=== PATIENT | female | born 1990 | race Caucasian/White ===

== ENCOUNTER 2016-09-30 11:27 | Emergency (ER) | payer OTHER ==
[~2016-09-30] VITALS: Ht 160 cm; Wt 56.0 kg
[~2016-09-30 11:27] MED LIST: DOXY100T PO; NAPR500 PO
[2016-09-30 11:29] VITALS: BP 120/70; PULSE 84; RESP 16; TEMP 98.1; O2SAT 99
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
[2016-09-30 12:09] LABS: AUTOMATED NEUTROPHIL # 3.5 TH/MM3 (1.8-7.7); BASOPHIL % 0.4 % (0.0-2.0); EOSINOPHIL # 0.1 TH/MM3 (0-0.4); EOSINOPHIL % 0.9 % (0.0-4.0); HEMATOCRIT 39.2 % (35.0-46.0); HEMO FLAGS DIFF FINAL; LYMPH % 29.6 % (9.0-44.0); LYMPHOCYTE # 1.7 TH/MM3 (1.0-4.8); MEAN CELL VOLUME 89.1 FL (80.0-100.0); MEAN CORPUSCULAR HEMOGLOBIN 30.7 PG (27.0-34.0); MEAN CORPUSCULAR HGB CONC 34.5 % (32.0-36.0); MONO % 9.2 % (0.0-8.0); NEUT % 59.9 % (16.0-70.0); PLATELET COUNT 259 TH/MM3 (150-450); RED CELL DISTRIBUTION WIDTH 13.7 % (11.6-17.2); WHITE BLOOD COUNT 5.8 TH/MM3 (4.0-11.0)
[2016-09-30 12:26] LABS: BICARBONATE 25.8 MEQ/L (21.0-32.0); POTASSIUM 3.8 MEQ/L (3.5-5.1)
[2016-09-30 12:26] LABS: BACTERIA, URINE FEW /hpf; BLOOD, URINE NEG (NEG); COMMENT (UR) CULT NOT INDICATED; CULTURE IF INDICATED CULT NOT INDICATED; GLUCOSE,URINE NEG (NEG); KETONE, URINE NEG (NEG); MUCUS URINE MANY /lpf (OCC); NITRITE,URINE NEG (NEG); SQUAMOUS EPITHELIAL CELL URINE 4 /hpf (0-5); URINE COLOR YELLOW (YELLW/STRAW)
[2016-09-30] MEDS ORDERED: ACETAMINOPHEN 325 MG TAB PO ONE (13:15)
[2016-09-30] MEDS ORDERED: ACET500T36 PO (13:51)
[2016-09-30 15:46] LABS: CHLAMYDIA PCR NOT DETECTED (NOT DETECT); NEISSERIA PCR NOT DETECTED (NOT DETECT)
== END 2016-09-30 14:12 | disposition home or self-care (01) ==
LOC: NEPA 11:27
DX: O26.899 Other specified pregnancy related conditions, unspecified trimester (principal); F41.8 Other specified anxiety disorders; B19.20 Unspecified viral hepatitis C without hepatic coma; Z3A.00 Weeks of gestation of pregnancy not specified
CPT/HCPCS: 80048; 81001; 84702; 84703; 85025; 86850; 86900; 86901; 87210; 87491; 87591; 99284

== ENCOUNTER 2016-10-05 21:44 | Emergency (ER) | payer SELFPAY ==
[~2016-10-05] VITALS: Ht 160 cm; Wt 56.0 kg
[~2016-10-05 21:44] MED LIST changes: +ACET500T36 PO; -DOXY100T PO; -NAPR500 PO
[2016-10-05 21:45] VITALS: BP 117/73; PULSE 85; RESP 14; TEMP 98.2; O2SAT 100
== END 2016-10-06 00:17 | disposition left against medical advice (07) ==
LOC: NED 21:44
DX: R68.89 Other general symptoms and signs (principal)
CPT/HCPCS: 99281

== ENCOUNTER 2016-10-06 12:50 | Emergency (ER) | payer SELFPAY ==
[~2016-10-06] VITALS: Ht 160 cm; Wt 55.0 kg
[2016-10-06 12:51] VITALS: BP 123/68; PULSE 90; RESP 15; TEMP 98; O2SAT 99
== END 2016-10-06 15:03 | disposition left against medical advice (07) ==
LOC: NED 12:50
DX: O26.899 Other specified pregnancy related conditions, unspecified trimester (principal)
CPT/HCPCS: 99281

== ENCOUNTER 2017-01-18 09:10 | Emergency (ER) | payer MEDICAID ==
[~2017-01-18] VITALS: Ht 160 cm; Wt 56.0 kg
[2017-01-18 09:11] VITALS: BP 126/86; PULSE 86; RESP 15; TEMP 98.3; O2SAT 99
[2017-01-18] MEDS ORDERED: LAMO100 PO (09:28)
[2017-01-18 10:00] LABS: AUTOMATED NEUTROPHIL # 3.5 TH/MM3 (1.8-7.7); BASOPHIL % 0.8 % (0.0-2.0); EOSINOPHIL # 0.1 TH/MM3 (0-0.4); EOSINOPHIL % 1.4 % (0.0-4.0); HEMATOCRIT 35.8 % (35.0-46.0); HEMO FLAGS DIFF FINAL; LYMPH % 24.2 % (9.0-44.0); LYMPHOCYTE # 1.3 TH/MM3 (1.0-4.8); MEAN CELL VOLUME 90.6 FL (80.0-100.0); MEAN CORPUSCULAR HEMOGLOBIN 29.4 PG (27.0-34.0); MEAN CORPUSCULAR HGB CONC 32.5 % (32.0-36.0); MONO % 8.9 % (0.0-8.0); NEUT % 64.7 % (16.0-70.0); PLATELET COUNT 255 TH/MM3 (150-450); RED BLOOD COUNT 3.95 MIL/MM3 (4.00-5.30); RED CELL DISTRIBUTION WIDTH 13.6 % (11.6-17.2); WHITE BLOOD COUNT 5.4 TH/MM3 (4.0-11.0)
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
[2017-01-18 10:20] LABS: BETA HCG QUANT 197 MIU/ML (0-5)
== END 2017-01-18 10:55 | disposition home or self-care (01) ==
LOC: NEPD 09:10
DX: N93.9 Abnormal uterine and vaginal bleeding, unspecified (principal); F17.210 Nicotine dependence, cigarettes, uncomplicated
CPT/HCPCS: 84702; 85025; 99283

== ENCOUNTER 2017-01-26 15:50 | Emergency (ER) | payer MEDICAID ==
[~2017-01-26] VITALS: Ht 160 cm; Wt 55.0 kg
[~2017-01-26 15:50] MED LIST changes: -ACET500T36 PO; +LAMO100 PO
[2017-01-26 15:52] VITALS: BP 123/62; PULSE 94; RESP 20; TEMP 98.7; O2SAT 99
--- NOTE | 2017-01-26 16:03 | PD ---
Physical Exam Date Seen by Provider: Jan 26, 2017 Time Seen by Provider: 16:01 Data Data Last Documented VS Vital Signs Date Time Temp Pulse Resp B/P Pulse Ox O2 Delivery O2 Flow Rate FiO2 01/26/17 15:52 98.7 94 20 123/62 99 Room Air MDM Supervised Visit with PAVEL: No Narrative Course 26 YO F with complaint of positive test. States lower abdominal cramping and vaginal bleeding. LMP 11/11. Patient seen with similar complaint 01/18. Vitals reviewed. Awaiting bed placement. Christel Denis Jan 26, 2017 16:03
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
[2017-01-26 17:57] LABS: BLOOD, URINE TRACE (NEG); COMMENT (UR) CULT NOT INDICATED; CULTURE IF INDICATED CULT NOT INDICATED; GLUCOSE,URINE NEG (NEG); KETONE, URINE NEG (NEG); MUCUS URINE FEW /lpf (OCC); NITRITE,URINE NEG (NEG); PH, URINE 6.5 (5.0-8.5); SQUAMOUS EPITHELIAL CELL URINE <1 /hpf (0-5); URINE COLOR YELLOW (YELLW/STRAW)
[2017-01-26 18:09] LABS: AUTOMATED NEUTROPHIL # 6.3 TH/MM3 (1.8-7.7); BASOPHIL # 0.1 TH/MM3 (0-0.2); BASOPHIL % 0.7 % (0.0-2.0); EOSINOPHIL # 0.1 TH/MM3 (0-0.4); HEMATOCRIT 38.3 % (35.0-46.0); HEMO FLAGS DIFF FINAL; LYMPH % 21.2 % (9.0-44.0); LYMPHOCYTE # 1.9 TH/MM3 (1.0-4.8); MEAN CELL VOLUME 91.4 FL (80.0-100.0); MEAN CORPUSCULAR HGB CONC 32.9 % (32.0-36.0); MONO % 7.8 % (0.0-8.0); NEUT % 69.3 % (16.0-70.0); PLATELET COUNT 270 TH/MM3 (150-450); RED BLOOD COUNT 4.19 MIL/MM3 (4.00-5.30); RED CELL DISTRIBUTION WIDTH 13.8 % (11.6-17.2)
[2017-01-26 18:20] LABS: BICARBONATE 25.2 MEQ/L (21.0-32.0); POTASSIUM 3.8 MEQ/L (3.5-5.1)
== END 2017-01-26 18:54 | disposition home or self-care (01) ==
LOC: NEPD 15:50
DX: O03.4 Incomplete spontaneous abortion without complication (principal)
CPT/HCPCS: 80048; 81001; 84702; 85025; 99283

== ENCOUNTER 2017-01-29 18:32 | Observation (INO) | payer MEDICAID ==
[~2017-01-29] VITALS: Ht 160 cm; Wt 56.0 kg
[2017-01-29 18:34] VITALS: BP 112/68; PULSE 95; RESP 20; TEMP 98.5; O2SAT 98
--- NOTE | 2017-01-29 19:36 | PD ---
Physical Exam Date Seen by Provider: Jan 29, 2017 Time Seen by Provider: 19:34 Narrative 26 yo female here for evaluation of possible ectopic. Has a recent ultrasound that showed mass on left ovary. Having bleeding and about 3-[address] Swenson told her to come here for evaluation. Pain to the lower abdomen which is cramping and 5/10. Vitals sign stable. Patient awaiting bed placement. Data Data Last Documented VS Vital Signs Date Time Temp Pulse Resp B/P Pulse Ox O2 Delivery O2 Flow Rate FiO2 01/29/17 18:34 98.5 95 20 112/68 98 Room Air [facility] Medical Record Reviewed: Yes Supervised Visit with PAVEL: Vijay Sanchez Jan 29, 2017 19:36
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
[2017-01-29 22:16] LABS: AUTOMATED NEUTROPHIL # 5.8 TH/MM3 (1.8-7.7); BASOPHIL % 0.3 % (0.0-2.0); EOSINOPHIL # 0.1 TH/MM3 (0-0.4); HEMO FLAGS DIFF FINAL; LYMPH % 25.9 % (9.0-44.0); LYMPHOCYTE # 2.3 TH/MM3 (1.0-4.8); MEAN CELL VOLUME 89.4 FL (80.0-100.0); MEAN CORPUSCULAR HEMOGLOBIN 29.3 PG (27.0-34.0); MEAN CORPUSCULAR HGB CONC 32.8 % (32.0-36.0); MONO % 7.2 % (0.0-8.0); NEUT % 65.6 % (16.0-70.0); PLATELET COUNT 289 TH/MM3 (150-450); RED BLOOD COUNT 4.14 MIL/MM3 (4.00-5.30); RED CELL DISTRIBUTION WIDTH 13.8 % (11.6-17.2); WHITE BLOOD COUNT 8.9 TH/MM3 (4.0-11.0)
[2017-01-29 22:19] LABS: BACTERIA, URINE RARE /hpf; BLOOD, URINE NEG (NEG); COMMENT (UR) CULT NOT INDICATED; CULTURE IF INDICATED CULT NOT INDICATED; GLUCOSE,URINE NEG (NEG); KETONE, URINE NEG (NEG); MUCUS URINE FEW /lpf (OCC); NITRITE,URINE NEG (NEG); SQUAMOUS EPITHELIAL CELL URINE 1 /hpf (0-5); URINE COLOR YELLOW (YELLW/STRAW)
[2017-01-29 22:38] LABS: ANION GAP 9 MEQ/L (5-15); AST (GOT) 21 U/L (15-37); BICARBONATE 25.8 MEQ/L (21.0-32.0); BLOOD UREA NITROGEN 8 MG/DL (7-18); CHLORIDE 105 MEQ/L (98-107); GLOMERULAR FILTRATION RATE 63 ML/MIN (>89); POTASSIUM 3.4 MEQ/L (3.5-5.1); SODIUM (NA) 140 MEQ/L (136-145)
[2017-01-29 22:39] LABS: ALT (GPT) 25 U/L (10-53)
[2017-01-29 22:43] LABS: ALKALINE PHOSPHATASE 54 U/L (45-117); BETA HCG QUANT 388 MIU/ML (0-5); TOTAL BILIRUBIN ADULT 0.4 MG/DL (0.2-1.0)
--- NOTE | 2017-01-29 23:28 | HHI.HP ---
HPI Chief Complaint Abnormal vaginal bleeding and pelvic pain for 4 weeks Date Seen: Jan 29, 2017 Travel History International Travel<30 Days: No Contact w/Intl Traveler<30Days: No Known Affected Area: No History of Present Illness HPI This patient is 26-year-old white female A [address] Boss who presents with a 4 week history of abnormal uterine bleeding and pelvic pain. She's had the slowly rising low-level quantitative hCGs that were initially 197 and then 316 and then tonight 388 she states the bleeding is at times somewhat heavy but most the time is very light and pain is intermittent. She's been the hospital 3 times with this problem in the last 4 weeks. [facility] which showed an empty uterus and a mass in the left side that was suspicious for ectopic , he then sent the patient to the emergency room patient is a history of ectopic in the past that was treated by laparoscopy by Dr. Boss who she describes as removing a small portion of the left tube and sewing it back together. Para: 1 : 6 Miscarriage: 1 : 2 History Past Medical History Narrative Medical History of bipolar disorder with multiple admissions and is on Lamictal for this now Had a history of being treated for PID in the past Medical History: Denies Significant Hx Obstetric History Obstetric History 1 , 1 ectopic on the left side, one spontaneous in September of this year, 2 elective AB is the past Past Surgical History Narrative Surgical , D&C, laparoscopy for ectopic Social History Narrative Social History Patient now no longer IV drug abuser but that was ongoing for 3 or 4 years in the past Alcohol Use: Yes Tobacco Use: Yes Substance Abuse: Yes Allergies-Medications (Allergen,Severity, Reaction): Coded Allergies: No Known Allergies (Verified , 01/29/17) Home Meds Reported Medications Lamotrigine (Lamictal)100 Mg [id number] Mg PO DAILY #30 TAB Ref 0 01/18/17 Review of Systems General / Constitutional: No: Fever, Weight Gain, Chills, Other Eyes: No: Diploplia, Blurred Vision, Visual changes, Pain, Photophobia HENT: No: Headaches, Vertigo, Lightheadedness Cardiovascular: No: Irregular Rhythm, Chest Pain or Discomfort, Palpitations, Tachycardia, Syncope, Varicosities, Edema, Cyanosis Respiratory: No: Cough, Short of Breath, Other Gastrointestinal: Abdominal Pain, No: Nausea, Vomiting, Diarrhea Genitourinary: Vaginal Bleeding, No: Decreased Urinary Output, Oliguria Musculoskeletal: No: Limited ROM, Weakness, Cramping, Edema, Pain Skin: No Rash, No Itching, No Dryness, No Lumps, No Change in Pigmentation, No Change in Nails, No Alopecia, No Lesions Neurologic: No: Weakness, Dizziness, Syncope, Focal Abnormalities, Coordination Problem, Headache, Slurred Speech, Seizures Psychiatric: No: Depression, Suicidal Ideations, Homicidal Ideation Endocrine: No: Heat Intolerance, Cold Intolerance, Polydipsia, Polyuria, Other Physical Exam Vital Signs Date Time Temp Pulse Resp B/P Pulse Ox O2 Delivery O2 Flow Rate FiO2 01/29/17 21:15 16 01/29/17 18:34 98.5 95 20 112/68 98 Room Air Narrative GENERAL: Well-nourished, well-developed patient. SKIN: Warm and dry. HEAD: Normocephalic and atraumatic. EYES: No scleral icterus. No injection or drainage. ENT: No nasal drainage noted. Mucous membranes pink. Airway patent. NECK: Supple, trachea midline. No JVD. CARDIOVASCULAR: Regular rate and rhythm without murmurs, gallops, or rubs. RESPIRATORY: Breath sounds equal bilaterally. No accessory muscle use. BREASTS: Bilateral exam showed no masses , no retractions, no nipple discharge. ABDOMEN/GI: Abdomen soft, 1-2+-tender in the suprapubic pubic region and to the right side, bowel sounds present, no rebound, no guarding , no mass GENITOURINARY: External Genitalia: intact and normal in appearance BUS glands: [-] Cervix: [-Positive cervical motion tenderness 1-2+] No blood in the vagina Uterus is anteflexed 2+ tender there is fullness on the right side with 2+ tenderness minimal to no abnormalities on the left side EXTREMITIES: No cyanosis or edema. BACK: Nontender without obvious deformity. No CVA tenderness. NEUROLOGICAL: Awake and alert. Motor and sensory grossly within normal limits. Five out of 5 muscle strength in all muscle groups. Normal speech. Data Data Orders Beta Hcg (Quant/Titer) (01/29/17 21:45) Complete Blood Count With Diff (01/29/17 21:45) Comprehensive Metabolic Panel (01/29/17 21:45) Urinalysis - C+S If Indicated (01/29/17 21:45) Iv Access Insert/Monitor (01/29/17 21:45) Ecg Monitoring (01/29/17 21:45) Type And Screen (01/29/17 22:09) Admit Order (Ed Use Only) (01/29/17 22:59) Labs Laboratory Tests Test 01/29/17 01/29/17 21:45 22:10 White Blood Count 8.9 Red Blood Count 4.14 Hemoglobin 12.1 Hematocrit 37.0 Mean Corpuscular Volume 89.4 Mean Corpuscular Hemoglobin 29.3 Mean Corpuscular Hemoglobin 32.8 Concent Red Cell Distribution Width 13.8 Platelet Count 289 Mean Platelet Volume 8.4 Neutrophils (%) (Auto) 65.6 Lymphocytes (%) (Auto) 25.9 Monocytes (%) (Auto) 7.2 Eosinophils (%) (Auto) 1.0 Basophils (%) (Auto) 0.3 Neutrophils # (Auto) 5.8 Lymphocytes # (Auto) 2.3 Monocytes # (Auto) 0.6 Eosinophils # (Auto) 0.1 Basophils # (Auto) 0.0 CBC Comment DIFF FINAL Differential Comment Urine Color YELLOW Urine Turbidity CLEAR Urine pH 6.0 Urine Specific [place] 1.017 Urine Protein NEG Urine Glucose (UA) NEG Urine Ketones NEG Urine Occult Blood NEG Urine Nitrite NEG Urine Bilirubin NEG Urine Urobilinogen LESS THAN 2.0 Urine Leukocyte Esterase NEG Urine RBC LESS THAN 1 Urine WBC LESS THAN 1 Urine Squamous Epithelial 1 Cells Urine Bacteria RARE Urine Mucus FEW Microscopic Urinalysis Comment CULT NOT INDICATED Sodium Level 140 Potassium Level 3.4 Chloride Level 105 Carbon Dioxide Level 25.8 Anion Gap 9 Blood Urea Nitrogen 8 Creatinine 1.06 Estimat Glomerular Filtration 63 Rate Random Glucose 82 Calcium Level 8.8 Total Bilirubin 0.4 Aspartate Amino Transf 21 (AST/SGOT) Alanine Aminotransferase 25 (ALT/SGPT) Alkaline Phosphatase 54 Total Protein 8.2 Albumin 4.6 Human Chorionic Gonadotropin, 388 Quant Blood Type O POSITIVE Assessment/Plan Assessment and Plan This patient is a 26-year-old white female a 4 with a history of ectopic treated by laparoscopy on the left side, now with potentially a repeat ectopic. Her quantitative hCGs have been slowly rising but had a low level of 197, 316, 388. Ultrasound done today shows empty uterus with a mass effect on the left side appears to be a fluid-filled tube with a tissue mass was 4 x 2 in that area that may be blood clot may be ectopic this area appears to be separate from the left ovary itself because of the ultrasound shows fluid- filled tube that potentially could be blood I was uncomfortable giving her methotrexate sending her out Impression-possible left-sided ectopic recurrent Plans-- admission the hospital have her nothing by mouth after midnight and consult Dr. Boss, in the morning to see if he would like to reevaluate and potentially taken to the operating room for another scope to definitively diagnosed this problem and treat if he is not interested in that motor therapy then consider a consultation with [facility] oncology Dr. Juan to see if that she would be willing to accept care Jean Velazquez II, MD Jan 29, 2017 23:28
[2017-01-29] MEDS ORDERED: SODIUM CHLORIDE 0.9% FLUSH 10 ML FLUSH IV FLUSH PRN (23:45)
[2017-01-30] VITALS (7 sets, daily range): BP systolic 93–112; BP diastolic 50–78; PULSE 61–74; RESP 18–20; TEMP 96.6–98.4; O2SAT 94–100
[2017-01-30] MEDS: ONDANSETRON HCL 4 MG/2 ML VIAL IV PRN ×2 (03:27→09:31)
[2017-01-30] MEDS: MORPHINE SULFATE 4 MG/ML INJ IV PUSH PRN ×2 (03:28→08:18)
[2017-01-30] MEDS ORDERED: NICOTINE 21 MG/24 HR PATCH T-DERMAL ONE (03:30)
[2017-01-30] MEDS ORDERED: SODIUM CHLORIDE 0.9% FLUSH 10 ML FLUSH IV FLUSH SCH (09:00)
[2017-01-30] MEDS ORDERED: PROPOFOL 200 MG/20 ML AMP IV ONE (09:28)
[2017-01-30] MEDS ORDERED: LACTATED RINGER'S 1000 ML INJ 1,000 ML IV ONE (09:29)
[2017-01-30] MEDS ORDERED: NEOSTIGMINE 3 MG/3 ML SYR IV ONE (09:29)
[2017-01-30] MEDS ORDERED: FAMOTIDINE 20 MG/2 ML VIAL ONE (10:09)
[2017-01-30] MEDS ORDERED: ONDANSETRON HCL 4 MG/2 ML VIAL ONE (10:09)
[2017-01-30] MEDS ORDERED: DEXAMETHASONE SOD PHOS 4 MG/ML VIAL ONE (10:10)
[2017-01-30] MEDS ORDERED: MIDAZOLAM HCL 2 MG/2 ML VIAL ONE (10:28)
[2017-01-30] MEDS ORDERED: fentaNYL CITRATE 250 MCG/5 ML AMP ONE (10:28)
[2017-01-30] MEDS: LACTATED RINGER'S 1000 ML INJ 1,000 ML IV SCH ×2 (12:01→20:56)
[2017-01-30] MEDS ORDERED: DO NOT ADM ANY ANTICOAGULANT DRUGS PRN (12:07)
[2017-01-30] MEDS ORDERED: *morphine SULFATE 8 MG/ML PERIprocedure ONLY ONE ×2 (12:14→13:10)
[2017-01-30] MEDS ORDERED: SODIUM CHLORIDE 0.9% FLUSH 10 ML FLUSH IV FLUSH PRN (12:15)
[2017-01-30] MEDS ORDERED: oxyCODONE/ACETAMINOPHEN 5 MG/325 MG TAB PO PRN (12:15)
[2017-01-30] MEDS ORDERED: IBUPROFEN 600 MG TAB PO PRN (12:15)
[2017-01-30] MEDS ORDERED: *MEPERIDINE 25 MG INJ VIAL PERIprocedural Use ONLY ONE (12:17)
[2017-01-30] MEDS ORDERED: IBUP-232 PO (12:58)
[2017-01-30] MEDS ORDERED: OXYC1TAB63 PO (12:58)
--- NOTE | 2017-01-30 12:58 | HHI.DCPOC ---
Discharge Care Plan Diagnosis: (1) Ectopic Report Symptoms to Your Doctor -Temperature above 100.5 degrees -Redness, of incision or excessive or foul smelling drainage -Unusual pain or calf pain -Increased vaginal bleeding -Painful or difficulty urinating -Feelings of extreme sadness or anxiety after 2 weeks Goals to Promote Your Health * To prevent worsening of your condition and complications * To maintain your health at the optimal level Directions to Meet Your Goals Take your medications as prescribed Follow your dietary instruction Follow activity as directed Ensure plenty of rest for recovery Drink fluids for hydration Keep your appointments as scheduled Take your immunizations and boosters as scheduled If your symptoms worsen call your PCP, if no PCP go to Urgent Care Center or Emergency Room Smoking is Dangerous to Your Health. Avoid second hand smoke Call the 24-hour crisis hotline for domestic abuse at Reinaldo Boss MD Jan 30, 2017 12:58
[2017-01-30] MEDS: oxyCODONE/ACETAMINOPHEN 5 MG/325 MG TAB PO PRN ×2 (14:38→22:00)
[2017-01-30] MEDS: ONDANSETRON HCL 4 MG/2 ML VIAL IVP PRN ×2 (15:20→21:14)
[2017-01-30] MEDS: SODIUM CHLORIDE 0.9% FLUSH 10 ML FLUSH IV FLUSH SCH (20:56)
[2017-01-31 05:33] VITALS: BP 98/48; PULSE 58; RESP 14; TEMP 97.4; O2SAT 98
[2017-01-31] MEDS: LACTATED RINGER'S 1000 ML INJ 1,000 ML IV SCH (05:33)
[2017-01-31 08:00] VITALS: BP 109/57; PULSE 62; RESP 20; TEMP 97.5; O2SAT 99
[2017-01-31] MEDS ORDERED: lamoTRIgine 100 MG TAB PO SCH (09:00)
[2017-01-31] MEDS: SODIUM CHLORIDE 0.9% FLUSH 10 ML FLUSH IV FLUSH SCH (09:00)
--- NOTE | 2017-01-31 10:36 | HHI.PR ---
Subjective Remarks Doing well, pain is well controlled and ready to go home. Ate some breakfast. Objective Vital Signs Date Time Temp Pulse Resp B/P Pulse Ox O2 Delivery O2 Flow Rate FiO2 01/31/17 08:00 97.5 62 20 109/57 99 01/31/17 05:33 97.4 58 14 98/48 98 01/30/17 23:47 96.6 68 20 93/52 99 01/30/17 23:35 16 01/30/17 19:27 97.5 69 20 101/64 94 01/30/17 19:03 72 18 112/60 100 01/30/17 14:33 61 18 102/57 100 01/30/17 13:47 97.7 74 18 94/50 96 01/30/17 13:30 97.4 76 14 96/51 98 Room Air 01/30/17 13:00 65 17 101/55 98 Room Air 01/30/17 12:45 65 24 93/55 100 Nasal Cannula 2 01/30/17 12:30 55 12 94/53 100 Nasal Cannula 2 01/30/17 12:15 74 19 104/55 100 Nasal Cannula 2 01/30/17 12:05 98.8 93 16 107/58 100 Nasal Cannula 2 I/O 01/30/17 01/30/17 01/30/17 01/31/17 01/31/17 01/31/17 07:00 15:00 23:00 07:00 15:00 23:00 Intake Total 1200 ml 240 ml Output Total 50 ml 800 ml Balance 1150 ml 240 ml -800 ml Intake Oral 240 ml Other 1200 ml Output Urine Total 800 ml Estimated Blood Loss 50 ml # Voids 1 1 Result Diagram: 01/29/17214401/29/172144 Other Results chest is clear cv RRR Abd is soft and Nt. Incisions are healing well Ext No CCE Assessment and Plan Assessment and Plan POD #1 S/P Lscopic salpingectomy for ectopic Doing well Home today. Reinaldo Boss MD Jan 31, 2017 10:36
--- NOTE | 2017-02-03 19:19 | MP ---
cc: Reinaldo BOSS MD Corrected: 02/08/2017 DATE OF SURGERY 01/30/17 PREOPERATIVE DIAGNOSIS Ectopic . POSTOPERATIVE DIAGNOSIS 1. Left ampullary ectopic . 2. Pelvic adhesions PROCEDURE 1. D&C laparoscopic exam with a left salpingectomy and lysis of adhesions around the right ovary. ANESTHESIA General SURGEON Reinaldo Boss MD FINDINGS Examination under anesthesia. Vagina was clean. The cervix was clean. There was a little bit of blood in the cervix. The uterus was normal size, shape and consistency and freely mobile. The adnexa was negative for masses. The laparoscopic exam revealed a left ampullary ectopic , partially ruptured, actively bleeding. There was some scar tissue around both ovaries, especially the right. These were all taken down completely. The upper abdomen and GI tract looked normal. COMPLICATIONS None. COUNTS Correct. ESTIMATED BLOOD LOSS 25 mL. FLUIDS Crystalloid DISPOSITION The patient tolerated the procedure well and went to recovery room in good condition. PROCEDURE IN DETAIL The patient was taken to the operating room identified by name band and verbally given a general anesthetic, prepped and draped in usual sterile fashion for laparoscopic vaginal surgery. An in-and-out catheter was performed and a weighted speculum was placed in the vagina. The anterior lip of the cervix was grasped with a single-tooth tenaculum. Cervix was serially dilated without difficulty and a quick D&C was done. There was minimal tissue noted. At this point, attention was turned to the umbilicus. A small subumbilical incision was made and with a 5 mm trocar the abdomen was entered under direct vision without difficulty and a pneumoperitoneum was created with 3 liters of CO2. Inferolateral to the umbilicus on the left I put a 12-mm port, on the right a 5 mm port. We began with stopping the bleeding from the ectopic . Using the harmonic scalpel, we went along the mesosalpinx of the entire tube and removed the entire tube without difficulty. Hemostasis was then excellent. At this point, we put the tube into an EndoCatch bag and removed it in toto without difficulty. At this time, we irrigated the pelvis and abdomen with a large amount of fluid until the fluid was clear. The scar tissue around the right ovary was then taken care of with the Harmonic scalpel using sharp dissection and there was some scar tissue around the left as well. Once this had been accomplished, the pelvis was again irrigated. Hemostasis was adequate at all surgical sites and the 12-mm trocar was removed. With the gas still in the abdomen, the fascia was repaired with 2-0 Vicryl in an interrupted fashion. The air was released from the 5 mm ports and the skin incisions repaired with 4-0 Monocryl in a subcuticular manner. She tolerated procedure well and went to recovery room in good condition. R. MD BROCK Parish/ /2:42 PM /7:00 PM MTDToshia
== END 2017-01-31 11:22 | disposition home or self-care (01) ==
LOC: NEPE 18:32 → UNDOADMOB 23:01 → OBSVTOIN 23:01 → NEDA 23:01 → INTOOBSV 23:01 → NEPHCDU 01-30 04:06 → NEDA 01-30 04:06 → HOCB 01-30 09:56 → NEPHCDU 01-30 09:56 → OBSVTOIN 01-30 12:04 → INTOOBSV 01-30 12:04 → NEPHCDU 01-30 12:04 → NEDA 01-30 12:04 → HOCB 01-30 12:04 → NEPHCDU 01-30 14:09 → HOCB 01-30 14:09 → NEPHCDU 01-30 14:09 → UNDODISOB 01-31 11:22 → UNDODISIN 01-31 11:22
PROVIDERS: ADMIT Obstetrics & Gynecology Maternal & Fetal Medicine; ATTEND Obstetrics & Gynecology Maternal & Fetal Medicine
DX: O00.10 Tubal pregnancy without intrauterine pregnancy (principal); E87.6 Hypokalemia; F31.9 Bipolar disorder, unspecified; F17.210 Nicotine dependence, cigarettes, uncomplicated; F41.8 Other specified anxiety disorders
CPT/HCPCS: 00840; 59151; 80053; 81001; 84702; 85025; 86850; 86900; 86901; 88305; 99285; G0378; J1100; J2175; J2250; J2270; J2405; J2710; J3010; J7120

== ENCOUNTER 2017-02-02 13:05 | Emergency (ER) | payer MEDICAID ==
[~2017-02-02 13:05] MED LIST changes: +IBUP-232 PO; +OXYC1TAB63 PO
[2017-02-02 13:13] VITALS: BP 114/59; PULSE 69; RESP 16; TEMP 98.8; O2SAT 99
[2017-02-02] MEDS ORDERED: SODIUM CHLOR 0.9% 1000 ML INJ 1,000 ML IV ONE (13:32)
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
[2017-02-02] MEDS ORDERED: KETOROLAC TROMETHAMINE 30 MG/ML (IVP) VIAL IVP ONE (13:45)
[2017-02-02] MEDS ORDERED: SODIUM CHLORIDE 0.9% FLUSH 10 ML FLUSH IVF PRN (13:45)
[2017-02-02] MEDS ORDERED: PROCHLORPERAZINE INJ 10 MG/2 ML VIAL IVP ONE (13:45)
[2017-02-02] MEDS ORDERED: diphenhydrAMINE HCL 50 MG/ML VIAL IVP ONE (13:45)
[2017-02-02 14:14] LABS: AUTOMATED NEUTROPHIL # 3.7 TH/MM3 (1.8-7.7); BASOPHIL % 0.5 % (0.0-2.0); EOSINOPHIL % 0.8 % (0.0-4.0); HEMATOCRIT 35.6 % (35.0-46.0); HEMO FLAGS DIFF FINAL; LYMPH % 25.3 % (9.0-44.0); LYMPHOCYTE # 1.4 TH/MM3 (1.0-4.8); MEAN CELL VOLUME 89.5 FL (80.0-100.0); MEAN CORPUSCULAR HEMOGLOBIN 30.1 PG (27.0-34.0); MEAN CORPUSCULAR HGB CONC 33.6 % (32.0-36.0); MONO % 8.2 % (0.0-8.0); NEUT % 65.2 % (16.0-70.0); PLATELET COUNT 281 TH/MM3 (150-450); RED BLOOD COUNT 3.98 MIL/MM3 (4.00-5.30); RED CELL DISTRIBUTION WIDTH 13.6 % (11.6-17.2); WHITE BLOOD COUNT 5.7 TH/MM3 (4.0-11.0)
[2017-02-02 14:16] LABS: BACTERIA, URINE RARE /hpf; BLOOD, URINE NEG (NEG); COMMENT (UR) CULT NOT INDICATED; CULTURE IF INDICATED CULT NOT INDICATED; GLUCOSE,URINE NEG (NEG); KETONE, URINE NEG (NEG); NITRITE,URINE NEG (NEG); SQUAMOUS EPITHELIAL CELL URINE <1 /hpf (0-5); URINE COLOR YELLOW (YELLW/STRAW)
[2017-02-02 14:27] VITALS: O2SAT 96
[2017-02-02 14:27] LABS: BICARBONATE 31.8 MEQ/L (21.0-32.0); POTASSIUM 4.1 MEQ/L (3.5-5.1)
[2017-02-02] MEDS ORDERED: ROBA500T PO (14:47)
[2017-02-02] MEDS ORDERED: IBUP-232 PO (14:47)
--- NOTE | 2017-02-02 15:11 | RADRPT ---
EXAM DATE/TIME: 02/02/2017 14:19 [facility] COMPARISON: No previous studies available for comparison. INDICATIONS : Neck pain after surgery to remove her fallopian tubes. MEDICAL HISTORY : Migraines. SURGICAL HISTORY : None. ENCOUNTER: Initial ACUITY: 2 days PAIN SCORE: 7/10 LOCATION: Entire cervical spine. FINDINGS: Two projection examination was performed. There is normal alignment and curvature of the vertebral b odies down to the level of C7. No evidence of fracture or subluxation. Vertebral body height is arun ntained. The disc spaces are maintained. The prevertebral soft tissues are of normal thickness. Th e atlanto-axial articulation is intact. CONCLUSION: No acute disease. Bryant Lopez MD on February 02, 2017 at 15:08 Board Certified Radiologist. This report was verified electronically.
--- NOTE | 2017-02-02 15:28 | RADRPT ---
EXAM DATE/TIME: 02/02/2017 15:10 [facility] COMPARISON: No previous studies available for comparison. INDICATIONS : Evaluate for cephalgia. RADIATION DOSE: 36.18 CTDIvol (mGy) MEDICAL HISTORY : Hepatitis C. Ovarian cyst, Bipolar. SURGICAL HISTORY : section. Tubal ligation. ENCOUNTER: Initial ACUITY: 4 - 6 days PAIN SCALE: 8/10 LOCATION: Bilateral cranial TECHNIQUE: Multiple contiguous axial images were obtained of the head. Using automated exposure control and adj ustment of the mA and/or kV according to patient size, radiation dose was kept as low as reasonably a chievable to obtain optimal diagnostic quality images. FINDINGS: CEREBRUM: The ventricles are normal for age. No evidence of midline shift, mass lesion, hemorrhage or acute in farction. No extra-axial fluid collections are seen. POSTERIOR FOSSA: The cerebellum and brainstem are intact. The 4th ventricle is midline. The cerebellopontine angle i s unremarkable. EXTRACRANIAL: The visualized portion of the orbits is intact. SKULL: The calvaria is intact. No evidence of skull fracture. CONCLUSION: No acute disease. Bryant Lopez MD on February 02, 2017 at 15:23 Board Certified Radiologist. This report was verified electronically.
== END 2017-02-02 16:02 | disposition home or self-care (01) ==
LOC: NEPD 13:05
DX: R51 Headache (principal); M54.2 Cervicalgia; R11.0 Nausea; H53.8 Other visual disturbances; R39.15 Urgency of urination; B19.20 Unspecified viral hepatitis C without hepatic coma; Z72.0 Tobacco use
CPT/HCPCS: 70450; 72040; 80048; 81001; 85025; 96374; 96375; 99285; J0780; J1200; J1885; J7030

== ENCOUNTER 2017-12-27 20:42 | Emergency (ER) | payer SELFPAY ==
[~2017-12-27] VITALS: Ht 160 cm; Wt 58.0 kg
[~2017-12-27 20:42] MED LIST changes: +ROBA500T PO
[2017-12-27 20:54] VITALS: BP 111/62; PULSE 68; RESP 18; TEMP 98.4; O2SAT 99
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
[2017-12-27 22:14] LABS: BILIRUBIN, URINE NEG (NEG); BLOOD, URINE NEG (NEG); GLUCOSE,URINE NEG (NEG); KETONE, URINE NEG (NEG); NITRITE,URINE NEG (NEG); PH, URINE 6.5 (5.0-8.5); SQUAMOUS EPITHELIAL CELL URINE 2 /hpf (0-5); URINE COLOR YELLOW (YELLW/STRAW); URINE LEUKOCYTE ESTERASE NEG (NEG)
[2017-12-27] MEDS ORDERED: CYCL10TA PO (22:20)
[2017-12-27] MEDS ORDERED: DICL75TA PO (22:20)
[2017-12-27] MEDS ORDERED: CYCLOBENZAPRINE HCL 10 MG TAB PO ONE (22:30)
[2017-12-27] MEDS ORDERED: NAPROXEN 500 MG TAB PO ONE (22:30)
== END 2017-12-27 22:50 | disposition home or self-care (01) ==
LOC: NEPD 20:42
DX: M54.5 Low back pain (principal); F31.9 Bipolar disorder, unspecified; F41.9 Anxiety disorder, unspecified; F12.90 Cannabis use, unspecified, uncomplicated; Z86.19 Personal history of other infectious and parasitic diseases; Z72.0 Tobacco use; Z79.899 Other long term (current) drug therapy
CPT/HCPCS: 81001; 99283